=== PATIENT | male | born 1945 | race Native Hawaiian/Other Pacific Islander ===

== ENCOUNTER 2017-07-21 15:48 | Outpatient (CLI) | payer OTHER ==
[2017-07-21 16:07] LABS: PLATELET COUNT 262 K/uL (142-355)
[2017-07-21 16:32] LABS: POTASSIUM 4.4 mmol/L (3.6-5.2)
== END 2017-07-21 20:04 | disposition home or self-care (01) ==
LOC: LAB 15:48
PROVIDERS: Nurse Practitioner Family
DX: Z00.00 Encounter for general adult medical examination without abnormal findings (principal); I10 Essential (primary) hypertension; R53.81 Other malaise; R53.83 Other fatigue; K21.9 Gastro-esophageal reflux disease without esophagitis; E55.9 Vitamin D deficiency, unspecified; E78.4 Other hyperlipidemia; Z79.899 Other long term (current) drug therapy; Z51.81 Encounter for therapeutic drug level monitoring
CPT/HCPCS: 80053; 80061; 82306; 83036; 84154; 84436; 84443; 85027

== ENCOUNTER 2021-05-01 09:29 | Outpatient (CLI) | payer OTHER | END 2021-05-01 19:44 | disposition home or self-care (01) | LOC: RAD 09:29 | PROVIDERS: ATTEND Internal Medicine | DX: Z79.52 Long term (current) use of systemic steroids (principal) ==

== ENCOUNTER 2021-06-27 10:15 | Outpatient (CLI) | payer OTHER | END 2021-06-27 19:13 | disposition home or self-care (01) | LOC: CT 10:15 | PROVIDERS: ATTEND Internal Medicine | DX: R06.02 Shortness of breath (principal); M94.1 Relapsing polychondritis ==